=== PATIENT | female | born 1955 | race African-American/Black ===

== ENCOUNTER → 2016-07-20 | Outpatient (CLI) | payer OTHER ==
[~2016-07-20] MED LIST: ACETAMINOPHEN PO; ADVAIR 2501 DISK W/D PO; ADVIL200 M1 DOB; ALBUTEROL17 GM INH; ALBUTEROL20 ml INH; ALPRAZOLAM PO; AMIODARONE PO; APRESOLINE PO; ARTIFICIAL TEAR15 ML OU; ASPIRIN PO; ASPIRIN81 M1 PO; ASPIRIN81 M2 PO; ASPIRIN81 MG PO; ASPIRINEC PO; ATACAND; ATARAX PO; AUGMENTIN875 M1 PO; AZITHROMYCIN250 MG PO; AZOPT5 ML OP; AZOPT5 ML OS; AZOR PO; BENADRYL PO; CLARITIN10 M2; COLACE CLEAR50 MG PO; COLACE PO; COLACE50 MG PO; COMBIGAN EYE DRO5 ML OS; COREG PO; COZAAR PO; DARVOCET-N 1001 TAB PO; DIAZEPAM; DOC Q LACE PO; DOC-Q-LACE100 MG PO; EXFORGE PO; FLAGYL PO; FLEXERIL10 MG PO; FLONASE 0.05% N16 G1; FLONASE16 GM; HCTZ PO; HYDROCODON-ACE1 EAC9 PO; LANSOPRAZOLE30 M2; LASIX; LEVAQUIN PO; LEVOXYL0.137 MG PO; LEXAPRO; LEXAPRO PO; LEXAPRO20 MG PO; LIPITOR; LIPITOR PO; LIPITOR20 MG PO; LISINOPRIL PO; LOPRESSOR PO; LORTAB 7.5-5001 TAB PO; LOSARTAN POTASS50 MG; MELATONIN3 M1 PO; METOPROLOL TART25 MG PO; MOTION RELIEF25 MG PO; MOTION SICKNESS25 M4 PO; MUCINEX DM1 TAB.SR .; NEPHROCAPS CAPSU1 MG PO; OMNIPRED10 ML OS; ONDANSETRON ODT4 MG PO; PATIENT'S PHARMACY; PAXIL PO; PERCOCET5/325 PO; PHENERGAN; PHENERGAN PO; PRED FORTE1 ML OP; PRED MILD5 ML; PRED MILD5 ML OP; PRED MILD5 ML OS; PRED MILD5 ML OU; PRED-G 1% EYE DR5 ML OP; PREDNISOLONE ACETATE 1% OS; PREDNISOLONE5 MG PO; PREDNISONE; PREVACID15 MG PO; PRILOSEC PO; PRO AIR HFA INH; PROAIR HFA8.5 GM INH; PROBIOTIC1 EAC1 PO; PROMETHAZINE-D240 ML PO; PROTONIX; PROTONIX PO; REFRESH EYE DRO50 EA OP; REFRESH OP SOL0.4 ML OP; REGLAN PO; RENAGEL PO; RENAGEL400 MG PO; RENAGEL403 MG PO; RENAGEL800 MG PO; RENAL; RENAL SOFTGEL1 MG PO; RENVELA800 MG PO; ROBITUSSIN-DM120 ML PO; SENNA PO; SENNA-S TABLE1 UDTAB PO; SENSIPAR90 MG PO; SPIRIVA18 MCG INH; SYNTHROID; SYNTHROID PO; SYNTHROID25 MCG PO; SYSTANE ULTRA 010 M1; TOPROL XL PO; TOPROL XL50 MG PO; TRUSOPT5 ML OP; TYLENOL EXTRA500 M1; VALTREX PO; VALTREX500 MG DOB; VALTREX500 MG PO; VICODIN 5/1 TAB 5/50 PO; WALGREENS PHARMACY; XANAX1 MG PO; XOPENEX1.25 MG/0. NEB; ZOFRAN PO; [UNRECOGNIZED DRUG - OTHER] OS
--- NOTE | ~2016-07-20 | NM78 ---
[facility] A Service of [facility] & [facility] / [facility] RADIOLOGY TEXT RESULTS PATIENT: JINA GOMEZ LOCATION: [facility] : 57 UNIT #: [id number] AGE: [address]: Marley García MD SEX: F ORDER DR: [id number] [facility] [address] [facility] [place], [place] [address] [id number] O MR#: [id number] Acc #: [id number] NAME: JINA GOMEZ : 1955 SEX: F STUDY DATE/TIME: 07/20/2016 14:46 UNIT: [facility] ROOM: STUDY DESCRIPTION: [facility] [facility] T[facility] oral Attending Physician: Marley García M.D. Referring Physician: Marley García M.D. Ordering Physician: Marley García M.D. Primary Care Physician: Bryant Miranda M.D. MEDICAL IMAGING REPORT This report is preliminary unless electronic signature is present EXAM I-131 therapy. INDICATIONS Thyroid cancer. Status post thyroidectomy May 2016. Thyroid ablation. PROCEDURE Following discussion of risks, benefits and recommended precautions, patient was administered iodine-131 in a single capsule for a total of 30.4 mCi. Patient is on dialysis and Radiation Officer recommends reduced dose of 30-40 mCi with dialysis to follow 24 hours after administration. Patient agrees. IMPRESSION I-131 administration. No immediate complication. Dictated by... Chacorta Vuong M.D. THIS IS AN ELECTRONICALLY VERIFIED REPORT Chacorta Vuong M.D. at 07/21/2016 7:08 AM EED/dez TD: 07/20/2016 20:10 JOB #: [id number] MEDICAL IMAGING REPORT COPY
== END | disposition home or self-care (01) ==
LOC: CNUC 12:05
DX: C73 Malignant neoplasm of thyroid gland (principal)
CPT/HCPCS: 79005; A9517

== ENCOUNTER → 2016-08-10 | Outpatient (CLI) | payer OTHER ==
[2016-08-11 16:05] LABS: BASOPHIL# 0.1 X10e3 (0-0.3); EOSINOPHIL# 0.1 X10e3 (0-0.7); EOSINOPHIL% 2.4 % (0.0-7.0); HEMATOCRIT 39.9 % (35.0-45.0); HEMOGLOBIN 12.5 gm/dL (12.0-16.0); LYMPHOCYTE# 2.2 X10e3 (1.0-3.5); LYMPHOCYTE% 39.9 % (17.0-45.0); MEAN CELL VOLUME 98.5 FL (83-96); MEAN CORPUSCULAR HGB CONC 31.5 g/dL (30-36); MEAN PLATELET VOLUME 9.1 FL (6.5-11.5); MONOCYTE# 0.6 X10e3 (0-1.0); MONOCYTE% 10.2 % (3.0-12.0); NEUTROPHIL# 2.6 X10e3 (1.5-7.1); NEUTROPHIL% 46.5 % (40-75); PLATELET COUNT 229 X10e3 (140-420); RED BLOOD COUNT 4.05 X10e (3.90-5.30); RED CELL DISTRIBUTION WIDTH 16.3 % (11.0-15.5); WHITE BLOOD COUNT 5.5 X10e3 (4.0-10.5)
[2016-08-11 16:13] LABS: DIFF IND NO
== END | disposition home or self-care (01) ==
LOC: CLAB 11:48
PROVIDERS: Ophthalmology Retina Specialist
DX: B25.8 Other cytomegaloviral diseases (principal)
CPT/HCPCS: 36415; 85025; 86360